=== PATIENT | female | born 2005 | race Two or more races ===

== ENCOUNTER → 2024-10-06 | Outpatient (CLI) | payer MEDICAID, SELFPAY ==
--- NOTE | 2024-10-06 14:00 | XR_ITS ---
Examination: Breast ultrasound, unilateral, left complete Date and time of exam: October 06, 2024 1414 hours INDICATIONS: Palpable lump 8:00 position left breast noticed one week ago Technique: Real-time santos scale ultrasonographic imaging performed left breast including all 4 quadrants as well as nipple retroareolar and axillary region. Findings: No cystic or solid mass IMPRESSION: BI-RADS Category 1: Negative study
== END | disposition home or self-care (01) ==
LOC: CDIM 14:01
PROVIDERS: PCP Family Medicine; Referring Provider Family Medicine; Visit Provider Family Medicine
DX: R92.312 Mammographic fatty tissue density, left breast (principal); N64.4 Mastodynia
CPT/HCPCS: 76641